=== PATIENT | female | born 1985 | race Caucasian/White ===

== ENCOUNTER 2018-11-19 16:33 | Emergency (ER) | payer OTHER ==
[~2018-11-19] VITALS: Ht 170.2 cm; Wt 98.0 kg
[~2018-11-19 16:33] MED LIST: AMBEREN; ATIVAN1 MG; BIRTH CONTROL; DIFLUCAN150 MG PO; IBUPROFEN 600600 M1 PO; KLONOPIN; LAMICTAL; METOPROLOL SUCC25 M1; NORCO 5-325 TA1 EACH PO; PREDNISONE 5 MG5 MG PO; PRINIVIL10 MG PO; PROBIOTIC1 EACH PO; PROZAC20 MG PO; XANAX 0.5 MG0.5 M1 PO; ZYRTEC10 M2 PO
[2018-11-19 16:44] LABS: URINE BILIRUBIN NEGATIVE (Negative); URINE BLOOD NEGATIVE (Negative); URINE CLARITY CLEAR; URINE COLOR YELLOW; URINE GLUCOSE-RANDOM* NEGATIVE (Negative); URINE KETONES NEGATIVE (Negative); URINE LEUKOCYTES-REFLEX NEGATIVE (Negative); URINE NITRITE-REFLEX NEGATIVE (Negative); URINE PROTEIN (DIPSTICK) NEGATIVE (Negative); URINE SPECIFIC GRAVITY <= 1.005 (1.005-1.035); URINE UROBILINOGEN 0.2 E.U./dl (0.2-1.0)
[2018-11-19] MEDS ORDERED: XANAX1 MG PO (16:50)
[2018-11-19] MEDS ORDERED: XANAX 0.25 MG0.25 MG PO (16:50)
[2018-11-19 17:00] LABS: ABSOLUTE NEUTROPHILS 4.5 thou/uL (1.4-8.2); BASOPHILS 0.7 % (0.0-2.0); EOSINOPHILS 1.6 % (0.0-3.0); HEMATOCRIT 41.5 % (37.0-47.0); LYMPHOCYTES 32.7 % (24.0-44.0); MCH 30.4 pg (26.0-34.0); MCHC 33.8 g/dL (28.0-37.0); MCV 90.2 fL (80.0-100.0); MONOCYTES 8.5 % (1.0-8.0); PLATELET COUNT 462 thou/uL (150-400); POLYS 56.5 % (36.0-66.0); RBC 4.61 mil/uL (4.20-5.00); RDW 13.5 % (10.5-14.5)
[2018-11-19 17:16] LABS: CALCIUM 8.5 mg/dL (8.5-10.1); CREATININE 0.9 mg/dL (0.6-1.0); POTASSIUM 4.3 mmol/L (3.5-5.1)
[2018-11-19] MEDS ORDERED: METOPROLOL SUCC50 MG PO (17:16)
[2018-11-19] MEDS ORDERED: NORVASC2.5 MG PO (17:16)
[2018-11-19] MEDS ORDERED: NEURONTIN 300300 M1 PO ×2 (17:17→17:18)
[2018-11-19] MEDS ORDERED: CLONIDINE0.1 PO (17:18)
[2018-11-19] MEDS ORDERED: LOPID600 MG PO (17:18)
[2018-11-19 17:21] LABS: ALBUMIN 3.4 g/dL (3.4-5.0); TOTAL BILIRUBIN 0.3 mg/dL (<0.1-1.0); TOTAL PROTEIN 7.7 g/dL (6.4-8.2)
[2018-11-19] MEDS ORDERED: ONDANSETRON HCL4 M2 PO (17:31)
[2018-11-19 17:46] VITALS: BP 99/70
== END 2018-11-19 17:46 | disposition home or self-care (01) ==
LOC: ER 16:33
PROVIDERS: Nurse Practitioner Family
DX: B34.9 Viral infection, unspecified (principal); R11.2 Nausea with vomiting, unspecified; F84.5 Asperger's syndrome; I10 Essential (primary) hypertension; F32.9 Major depressive disorder, single episode, unspecified; E66.9 Obesity, unspecified; Z68.33 Body mass index [BMI] 33.0-33.9, adult; Z88.0 Allergy status to penicillin; Z88.2 Allergy status to sulfonamides; Z88.8 Allergy status to other drugs, medicaments and biological substances; Z91.040 Latex allergy status

== ENCOUNTER 2020-04-20 12:04 | Emergency (ER) | payer OTHER ==
[~2020-04-20] VITALS: Ht 170.2 cm; Wt 97.5 kg
[~2020-04-20 12:04] MED LIST changes: +CLONIDINE0.1 PO; +LOPID600 MG PO; +METOPROLOL SUCC50 MG PO; +NEURONTIN 300300 M1 PO; +NORVASC2.5 MG PO; +ONDANSETRON HCL4 M2 PO; +XANAX 0.25 MG0.25 MG PO; +XANAX1 MG PO
[2020-04-20 12:33] LABS: URINE BILIRUBIN NEGATIVE (Negative); URINE BLOOD NEGATIVE (Negative); URINE CLARITY CLEAR; URINE COLOR YELLOW; URINE GLUCOSE-RANDOM* NEGATIVE (Negative); URINE KETONES NEGATIVE (Negative); URINE LEUKOCYTES-REFLEX NEGATIVE (Negative); URINE NITRITE-REFLEX NEGATIVE (Negative); URINE PROTEIN (DIPSTICK) NEGATIVE (Negative); URINE SPECIFIC GRAVITY 1.015 (1.005-1.035); URINE UROBILINOGEN 0.2 E.U./dl (0.2-1.0)
[2020-04-20] MEDS ORDERED: VANACOF DM LIQ240 ML PO (13:39)
[2020-04-20] MEDS ORDERED: VIBRAMYCIN 100100 MG PO (13:39)
[2020-04-20] MEDS ORDERED: TYLENOL325 M1 PO (13:39)
[2020-04-20 13:50] VITALS: BP 123/87
[2020-04-20] MEDS ORDERED: DIFLUCAN150 M1 PO (13:56)
== END 2020-04-20 13:50 | disposition home or self-care (01) ==
LOC: ER 12:04
PROVIDERS: Emergency Medicine
DX: J18.9 Pneumonia, unspecified organism (principal); I10 Essential (primary) hypertension; Z79.899 Other long term (current) drug therapy; Z88.0 Allergy status to penicillin; Z88.2 Allergy status to sulfonamides; Z88.8 Allergy status to other drugs, medicaments and biological substances; Z91.040 Latex allergy status; Z20.822 Contact with and (suspected) exposure to COVID-19

== ENCOUNTER 2020-04-25 13:16 | Emergency (ER) | payer OTHER ==
[~2020-04-25] VITALS: Ht 170.2 cm; Wt 99.8 kg
[~2020-04-25 13:16] MED LIST changes: +DIFLUCAN150 M1 PO; +TYLENOL325 M1 PO; +VANACOF DM LIQ240 ML PO; +VIBRAMYCIN 100100 MG PO
[2020-04-25 13:18] VITALS: BP 123/89
[2020-04-25] MEDS ORDERED: VALACYCLOVIR1000 MG PO (13:58)
== END 2020-04-25 14:11 | disposition home or self-care (01) ==
LOC: ER 13:16
DX: B02.39 Other herpes zoster eye disease (principal); I10 Essential (primary) hypertension; Z79.899 Other long term (current) drug therapy; Z88.0 Allergy status to penicillin; Z88.2 Allergy status to sulfonamides; Z88.8 Allergy status to other drugs, medicaments and biological substances; Z91.040 Latex allergy status

== ENCOUNTER 2020-05-17 18:04 | Inpatient (IN) | payer OTHER ==
[~2020-05-17] VITALS: Ht 170.2 cm; Wt 96.4 kg
[~2020-05-17 18:04] MED LIST changes: +VALACYCLOVIR1000 MG PO
[2020-05-17 18:40] VITALS: BP 127/76
[2020-05-17 20:25] LABS: HEMATOCRIT 37.4 % (37.0-47.0); HEMOGLOBIN 12.3 gm/dL (12.0-15.0); MCH 29.3 pg (26.0-34.0); MCHC 32.9 g/dL (28.0-37.0); MCV 89.2 fL (80.0-100.0); PLATELET COUNT 580 thou/uL (150-400); RBC 4.19 mil/uL (4.20-5.00); RDW 15.2 % (10.5-14.5); WBC 20.7 thou/uL (4.0-11.0)
[2020-05-17 20:33] LABS: ANION GAP 9 mmol/L (7-16); BUN 8 mg/dL (7-18); CALCIUM 9.4 mg/dL (8.5-10.1); CHLORIDE 98 mmol/L (98-107); CO2 27 mmol/L (21-32); GLUCOSE 162 mg/dL (74-106); POTASSIUM 3.7 mmol/L (3.5-5.1); SODIUM 134 mmol/L (136-145)
[2020-05-17 20:43] LABS: SGOT 12 U/L (15-37); SGPT 16 U/L (14-59); TOTAL BILIRUBIN 0.3 mg/dL (0.2-1.0); TOTAL PROTEIN 8.4 g/dL (6.4-8.2); TROPONIN-I <0.06 ng/mL (<0.06)
[2020-05-17 20:57] LABS: ABSOLUTE NEUTROPHILS 17.8 thou/uL (1.4-8.2); LARGE PLATELETS FEW
[2020-05-18] VITALS (7 sets, daily range): BP systolic 110–131; BP diastolic 71–87
[2020-05-18 06:01] LABS: HEMATOCRIT 37.6 % (37.0-47.0); HEMOGLOBIN 12.5 gm/dL (12.0-15.0); MCH 29.8 pg (26.0-34.0); MCHC 33.3 g/dL (28.0-37.0); MCV 89.3 fL (80.0-100.0); RBC 4.21 mil/uL (4.20-5.00); RDW 14.9 % (10.5-14.5); WBC 18.2 thou/uL (4.0-11.0)
[2020-05-18 06:13] LABS: URINE BILIRUBIN NEGATIVE (Negative); URINE BLOOD NEGATIVE (Negative); URINE COLOR YELLOW; URINE GLUCOSE-RANDOM* NEGATIVE (Negative); URINE KETONES TRACE (Negative); URINE LEUKOCYTES-REFLEX NEGATIVE (Negative); URINE NITRITE-REFLEX NEGATIVE (Negative); URINE PROTEIN (DIPSTICK) 1+ (Negative); URINE UROBILINOGEN 0.2 E.U./dl (0.2-1.0)
[2020-05-18 06:14] LABS: URINE CLARITY CLOUDY
[2020-05-18 06:16] LABS: POTASSIUM 4.6 mmol/L (3.5-5.1)
--- NOTE | 2020-05-18 07:03 | EKG ---
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 : 1985 Requested By: Lorenzo Grayson Order Number: [id number] MD: Raciel Armstrong Measurements Intervals [place] Rate: 108 P: 37 UT: 142 QRS: 43 QRSD: 99 T: 16 QT: 347 QTc: 465 Interpretive Statements Sinus tachycardia Probable left atrial enlargement Baseline wander in lead(s) III,V1,V2 Compared to ECG 11/02/2004 18:52:05 Sinus rhythm no longer present Electronically Signed On 05-18-2020 7:03:24 CDT by Raciel Armstrong [email or web address] <ELECTRONICALLY SIGNED> By: Raciel Armstrong MD, [facility] 05/18/20702 15 15 Raciel Armstrong MD, [facility] /EPI
[2020-05-18 07:11] LABS: CASTS None Seen /LPF (None Seen); MUCUS 0-3 Light strn/LPF (None Seen); SQUAMOUS 4-10 Moderate /LPF (0-3)
[2020-05-18 07:12] LABS: URINE RBC None Seen /HPF (0-2); URINE WBC-REFLEX 0-5 Rare /HPF (0-5)
[2020-05-18 07:13] LABS: AMORPHOUS URATES Moderate /LPF (None Seen); BACTERIA-REFLEX 1-9 Few /HPF (None Seen)
[2020-05-19 05:15] VITALS: BP 138/95
[2020-05-19 06:02] LABS: ABSOLUTE NEUTROPHILS 12.5 thou/uL (1.4-8.2); BASOPHILS 0.2 % (0.0-2.0); EOSINOPHILS 0.4 % (0.0-3.0); HEMATOCRIT 32.9 % (37.0-47.0); HEMOGLOBIN 10.9 gm/dL (12.0-15.0); LYMPHOCYTES 17.9 % (24.0-44.0); MCH 29.3 pg (26.0-34.0); MCV 88.9 fL (80.0-100.0); MONOCYTES 6.7 % (1.0-8.0); PLATELET COUNT 562 thou/uL (150-400); POLYS 74.8 % (36.0-66.0); RBC 3.71 mil/uL (4.20-5.00); RDW 14.6 % (10.5-14.5); WBC 16.8 thou/uL (4.0-11.0)
[2020-05-19 07:52] VITALS: BP 126/84
--- NOTE | 2020-05-19 12:22 | HC ---
[facility] [place] [address] CONSULTATION Name: CALEB OLIVA Room #: 354-P ADM IN M.R.#: [id number] Admission: 05/17/20 Attend Phys: Zaina Handley MD Discharge: Date of : 81 Report #: [id number] THIS REPORT FOR: cc: Mishel Martino MD, Molly MD Barry, Joseph W. MD ~ DATE OF SERVICE: 05/18/2020 INFECTIOUS DISEASE CONSULTATION ATTENDING PHYSICIAN: Dr. Handley. REASON FOR EVALUATION: Pneumonitis, possible pulmonary abscess. HISTORY OF PRESENT ILLNESS: Chart reviewed, patient examined. This 34-year-old female with a recent history of pneumonitis, was actually treated roughly 1 month ago, developed increasing difficulty with productive cough, also had what sounds like pleuritic-type chest pain on the left. Of note, she had some anorexia and poor p.o. intake. Denies significant GI related complaints. Due to her complaints, she was evaluated in the Emergency Room, felt to have a mildly elevated lactic acid of 1.6. White count had elevation of 20.7. Chest x-ray showed mass-like infiltrate, small left pleural effusion. CT and followup noted infiltrate and developing pulmonary abscess along the pleura of the left lower lobe laterally 6.1 cm, small left pleural effusion. Blood cultures collected on admission are sterile thus far. Urinalysis is unremarkable thus far. Coronavirus testing was negative. Sputum culture has been collected, which appeared to show contamination. Currently, she has not required supplemental oxygen. She was empirically started on combination therapy with levofloxacin and Zosyn. ALLERGIES: PENICILLIN, WHICH CAUSES A RASH; SULFA, WHICH CAUSES A RASH; LANOLIN AND LATEX. CURRENT MEDICATIONS: Include gabapentin, metoprolol, amlodipine, loratadine, alprazolam, fluoxetine, famotidine, Zosyn, Levaquin, p.r.n. analgesics and antiemetics. PAST MEDICAL HISTORY: History of Asperger's syndrome, hypertension, depression, autism. SOCIAL HISTORY: Nonsmoker, no ethanol, no illicit drug use. FAMILY HISTORY: Noncontributory. REVIEW OF SYSTEMS: Otherwise, unremarkable 10-point review of systems. [address] [address] CONSULTATION Name: HARMANCALEB Room #: 354-P [facility].#: [id number] Admission: 05/17/20 Attend Phys: Zaina Handley MD Discharge: Date of : 81 Report #: [id number] PHYSICAL EXAMINATION: GENERAL: Appears to be mildly encephalopathic, in [id number] distress. VITAL SIGNS: Temperature 97.7, pulse 91, respirations 18, blood pressure 131/86. SKIN: Warm, dry, no rashes. HEENT: Normocephalic. Extraocular muscles are intact. NECK: Supple. LUNGS: Bilateral crackles at the bases. HEART: Regular. I do not appreciate a murmur. ABDOMEN: Soft, nontender, nondistended. EXTREMITIES: No cyanosis. GENITOURINARY AND RECTAL: Deferred. LABORATORY DATA: Sputum cultures described above rejected due to likely contaminant. Coronavirus PCR was negative. Procalcitonin of 0.12. Lactic acid repeated as well of 1.2. CBC: White count of 18.2, H and H of 12.5 and 37.6, platelets of 554. CTA chest PE protocol showed no evidence of PE, infiltrate developing pulmonary abscess along the floor of the left lower lobe laterally. ProBNP of 88. ASSESSMENT AND PLAN: Pneumonitis, perhaps complicated by early pulmonary abscess on the left lower lobe, does have what clinically sounds like pleuritic-type chest pain. We will continue antibiotic regimen, adjust therapy, be concerned about a polymicrobial possible mixed infection. At this point, she is not overtly toxic. She is not requiring supplemental oxygen, although may need to repeat imaging here in the next few days to see if it localizes and maybe would be amenable to percutaneous drainage. Continue to monitor expectantly. She is tenuous at this point. <ELECTRONICALLY SIGNED> By: Mark Anthony Burger MD 05/19/20 1222 1701 24 Mark Anthony Burger MD /nt
[2020-05-19 16:59] VITALS: BP 121/79
[2020-05-19 19:17] VITALS: BP 138/89
[2020-05-20 03:59] VITALS: BP 129/76
[2020-05-20 08:10] VITALS: BP 143/73
[2020-05-20 19:38] VITALS: BP 130/84
[2020-05-21 03:29] LABS: ABSOLUTE NEUTROPHILS 6.8 thou/uL (1.4-8.2); BASOPHILS 0.7 % (0.0-2.0); EOSINOPHILS 3.6 % (0.0-3.0); HEMATOCRIT 31.9 % (37.0-47.0); HEMOGLOBIN 10.7 gm/dL (12.0-15.0); LYMPHOCYTES 30.7 % (24.0-44.0); MCH 30.2 pg (26.0-34.0); MCHC 33.7 g/dL (28.0-37.0); MCV 89.5 fL (80.0-100.0); MONOCYTES 5.3 % (1.0-8.0); PLATELET COUNT 555 thou/uL (150-400); POLYS 59.7 % (36.0-66.0); RBC 3.56 mil/uL (4.20-5.00); RDW 14.9 % (10.5-14.5); WBC 11.3 thou/uL (4.0-11.0)
[2020-05-21 03:33] LABS: CALCIUM 8.1 mg/dL (8.5-10.1); CREATININE 0.8 mg/dL (0.6-1.0); MAGNESIUM 1.6 mg/dL (1.8-2.4); POTASSIUM 3.1 mmol/L (3.5-5.1)
[2020-05-21 04:42] VITALS: BP 135/98
[2020-05-21 07:33] VITALS: BP 119/84
[2020-05-21 10:59] VITALS: BP 119/84
[2020-05-21] MEDS ORDERED: CEFDINIR300 MG PO (13:25)
[2020-05-21] MEDS ORDERED: MAGNESIUM400 MG PO (13:25)
[2020-05-21] MEDS ORDERED: CLEOCIN HCL150 MG PO (13:25)
[2020-05-21] MEDS ORDERED: K-DUR 20 MEQ T20 MEQ PO (13:25)
[2020-05-21] MEDS ORDERED: DIFLUCAN150 M1 PO (13:25)
[2020-05-21 14:28] VITALS: BP 119/84
[2020-05-21 15:15] VITALS: BP 119/84
[2020-05-21 15:49] VITALS: BP 119/84
== END 2020-05-21 15:15 | disposition home or self-care (01) | DRG 871 ==
LOC: ER 18:04 → 3W 21:32 → EROBS 21:32 → ICU 05-18 02:11 → 3W 05-18 07:20
PROVIDERS: Emergency Medicine; Internal Medicine; Nurse Practitioner Family; ADMIT Internal Medicine; ATTEND Internal Medicine
DX: A41.9 Sepsis, unspecified organism (principal); J85.1 Abscess of lung with pneumonia; F84.5 Asperger's syndrome; I10 Essential (primary) hypertension; Z20.822 Contact with and (suspected) exposure to COVID-19; E66.01 Morbid (severe) obesity due to excess calories; F32.9 Major depressive disorder, single episode, unspecified; Z68.33 Body mass index [BMI] 33.0-33.9, adult; Z88.0 Allergy status to penicillin; Z88.2 Allergy status to sulfonamides; Z88.8 Allergy status to other drugs, medicaments and biological substances; Z91.040 Latex allergy status
CPT/HCPCS: 10879

== ENCOUNTER → 2020-06-21 | Outpatient (CLI) | payer OTHER ==
[~2020-06-21] MED LIST changes: +CEFDINIR300 MG PO; +CLEOCIN HCL150 MG PO; +K-DUR 20 MEQ T20 MEQ PO; +MAGNESIUM400 MG PO
== END ==
LOC: RAD 10:56
PROVIDERS: ATTEND Pediatrics
DX: R91.8 Other nonspecific abnormal finding of lung field (principal); J98.11 Atelectasis